=== PATIENT | female | born 1940 | race Native Hawaiian/Other Pacific Islander ===

== ENCOUNTER 2020-02-13 20:49 | Emergency (ER) | payer OTHER ==
[~2020-02-13] VITALS: Ht 144.8 cm; Wt 57.2 kg
[~2020-02-13 20:49] MED LIST: CIPRO250 MG PO
[2020-02-13 21:34] LABS: PLATELET COUNT 212 K/uL (152-353)
[2020-02-13 21:45] LABS: POTASSIUM 3.4 mmol/L (3.6-5.2)
[2020-02-13 23:02] VITALS: BP 131/97; TEMP 98.1
[2020-02-14] MEDS ORDERED: AMANTADINE100 M1 PO (06:17)
[2020-02-14] MEDS ORDERED: DONE5TAB PO (06:19)
[2020-02-14] MEDS ORDERED: ASA LOW DOSE81 MG PO (06:25)
[2020-02-14] MEDS ORDERED: HALO50IN4 IM (06:27)
[2020-02-14] MEDS ORDERED: FURO20TA67 PO (06:27)
[2020-02-14] MEDS ORDERED: EUTHYROX112 MCG PO (06:34)
[2020-02-14] MEDS ORDERED: LEXAPRO10 MG PO (06:35)
[2020-02-14] MEDS ORDERED: LEXAPRO20 MG PO (06:36)
[2020-02-14] MEDS ORDERED: METO25TA2 PO (06:37)
[2020-02-14] MEDS ORDERED: POTASSIUM CHLO10 ME1 PO (06:38)
[2020-02-14] MEDS ORDERED: SEROQUEL25 MG PO ×2 (06:40→06:41)
[2020-02-14] MEDS ORDERED: SEROQUEL50 MG PO (06:42)
[2020-02-14] MEDS ORDERED: TRAZODONE HYDRO50 MG PO (06:43)
[2020-02-14] MEDS ORDERED: LISI10TA11 PO (06:44)
[2020-02-14] MEDS ORDERED: NAMENDA5 MG PO (06:46)
[2020-02-14] MEDS ORDERED: ARTIFICIAL TEARS1 % OPTH (06:50)
[2020-02-14] MEDS ORDERED: LIDOCAINE PAIN RE4 % EX (06:54)
[2020-02-14] MEDS ORDERED: QUET25TA2 PO (08:25)
== END 2020-02-13 23:02 | disposition other institution (70) ==
LOC: ED 20:49
PROVIDERS: Emergency Medicine Emergency Medical Services
DX: F03.91 Unspecified dementia, unspecified severity, with behavioral disturbance (principal); F50.89 Other specified eating disorder; Z11.59 Encounter for screening for other viral diseases; Z04.6 Encounter for general psychiatric examination, requested by authority
CPT/HCPCS: 80053; 85027; 87635; 93005; 99283; U0003